=== PATIENT | male | born 1970 | race American Indian/Alaskan Native ===

== ENCOUNTER 2017-05-07 10:10 | Outpatient (CLI) | payer MEDICARE ==
[2017-05-07] MEDS ORDERED: XYLOCAINE TOPICAL 4% TP ONE (10:47)
== END 2017-05-07 10:11 | disposition home or self-care (01) ==
LOC: WOUND 10:10
PROVIDERS: ATTEND Surgery
DX: I87.2 Venous insufficiency (chronic) (peripheral) (principal); L97.212 Non-pressure chronic ulcer of right calf with fat layer exposed; F17.210 Nicotine dependence, cigarettes, uncomplicated
CPT/HCPCS: 99215; G0463